=== PATIENT | male | born 1975 | race American Indian/Alaskan Native ===

== ENCOUNTER 2017-05-17 13:17 | Day surgery (SDC) | payer OTHER ==
[~2017-05-17 13:17] MED LIST: ANCEF/STERILE WATER 2 GM/20 ML IV NR
--- NOTE | 2017-05-17 14:11 | Anesthesia Consultation ---
Anesthesia Consult and Med Hx Date of service: 05/17/17 - Airway Anesthetic Teeth Evaluation: Good (braces on lower teeth) ROM Head & Neck: Inadequate (Pt. is a C3 Quadraplegic) Mental/Hyoid Distance: Adequate Mallampati Class: Class I (Pt. is trached.) - Pulmonary Exam CTA: Yes - Cardiac Exam Cardiac Exam: RRR - Pre-Operative Health Status ASA Pre-Surgery Classification: ASA3 Proposed Anesthetic Plan: General - Pulmonary Hx Smoking: No Hx Respiratory Symptoms: No Home Oxygen Therapy: No Hx Sleep Apnea: No (CAROLYN PRE SCREEN LOW RISK) - Cardiovascular System Hx Hypertension: No - Central Nervous System Hx Neuromuscular Disorder: Yes (C3 quadraplegic) Hx Back Pain: Yes (generalized body pain) - Gastrointestinal Hx Gastroesophageal Reflux Disease: No (Pt. has G-tube, but does not use. Eats regular food by mouth.) - Endocrine Hx Renal Disease: No (Frequent UTI's due to neurogenic bladder.) Hx Non-Insulin Dependent Diabetes: No - Hematic Hx Sickle Cell Disease: No - Other Systems Hx Cancer: No - Additional Comments Anesthesia Medical History Comments: Pt. has a tracheostomy.
--- NOTE | 2017-05-17 14:16 | Anesthesia Day of Surgery ---
Anesthesia Day of Surgery - Day of Surgery Patient Examined: Yes Patient H&P Reviewed: Yes Patient is NPO: Yes
[2017-05-17] MEDS ORDERED: NACL BACTERIOSTATIC INFILTRATI ONE (14:58)
[2017-05-17] MEDS ORDERED: PEPCID PO NR (15:00)
[2017-05-17] MEDS ORDERED: NACL 0.9% 1000 ML 1,000 ML IV SCH (15:00)
[2017-05-17] MEDS ORDERED: VERSED IV NR (15:00)
[2017-05-17] MEDS ORDERED: DILAUDID ONE (15:42)
[2017-05-17] MEDS ORDERED: WATER FOR IRRIG STERILE IR ONE (16:15)
[2017-05-17] MEDS ORDERED: ZOFRAN ONE (16:49)
--- NOTE | 2017-05-17 16:49 | Short Stay Summary ---
Short Stay Documentation Date of service: 05/17/17 - History H&P: obtained from office - Allergies and Medications Current Medications: Allergies No Known Allergies Allergy (Verified 05/11/17 16:33) Home Medications Medication Instructions Recorded Confirmed Last Taken Type Baclofen [Lioresal] 10 mg PO BID 05/11/17 05/11/17 05/17/17 07:00 History Midodrine [Proamatine] 5 mg PO TID 05/11/17 05/11/17 05/17/17 07:00 History Pregabalin [Lyrica] 150 mg PO BID 05/11/17 05/11/17 05/17/17 07:00 History QUEtiapine [SEROquel] 100 mg PO QHS 05/11/17 05/11/17 05/16/17 History Sertraline [Zoloft] 50 mg PO QDAY 05/11/17 05/11/17 05/16/17 History Active Medications Cefazolin Sodium (Ancef/Sterile Water 2 Gm/20 Ml) 2 gm IV PREOP NR Stop: 05/17/17 23:59 Famotidine (Pepcid) 20 mg PO PREOP NR Stop: 05/17/17 23:59 Last Admin: 05/17/17 15:05 Dose: 20 mg Sodium Chloride (Nacl 0.9% 1000 Ml) 1,000 mls @ 75 mls/hr IV DIRECT TALIA Last Admin: 05/17/17 15:10 Dose: 75 mls/hr Midazolam HCl (Versed) 2 mg IV PREOP NR Stop: 05/17/17 23:59 - Brief post op/procedure progress note Date of procedure: 05/17/17 Pre-op diagnosis: neurogenic bladder Post-op diagnosis: same Procedure: cysto, cystogram, spt placement Anesthesia: GETA Surgeon: JUAN JOSE RUIZ Estimated blood loss: minimal Pathology: none Condition: stable - Hospital course Hospital course: annro & radha on chart - Disposition Condition at discharge: Stable Disposition: DC-01 TO HOME OR SELFCARE Short Stay Discharge Plan Follow up with: DEQUAN NGUYEN MD [Primary Care Provider] - 7 Days
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
--- NOTE | 2017-05-17 18:41 | Post Anesthesia Evaluation ---
- Post Anesthesia Evaluation Patient Participated: Yes Airway Patent: Yes Stable Respiratory Function: Yes Nausea/Vomiting: No Temp > 96.8F: Yes Pain Manageable: Yes Adequeate Hydration: Yes Anesthesia Complications: No Block Receding Appropriately: Not Applicable Patient on Ventilator: No
[2017-05-17 18:58] VITALS: BP 146/68
--- NOTE | 2017-05-18 08:56 | Fluoroscopy Report ---
Static cystogram in OR: Urinary retention. The initial image demonstrates a PEG tube. A suprapubic catheter is present through which contrast was injected into the urinary bladder. The bladder demonstrates mild trabeculation of the bladder wall with a vertical contour of the bladder. No filling defect no extravasation noted. Impression: The bladder contour is consistent with outlet obstruction/neurogenic bladder.
== END 2017-05-17 13:18 | disposition home or self-care (01) ==
LOC: OR 13:17
PROVIDERS: ATTEND Urology
DX: N31.9 Neuromuscular dysfunction of bladder, unspecified (principal); G82.50 Quadriplegia, unspecified; N21.0 Calculus in bladder; R33.9 Retention of urine, unspecified
CPT/HCPCS: 51040; 51102; 51600; 74430; A4217; J0690; J1170; J2405; J7030; Q9967; J2250

== ENCOUNTER 2018-10-20 12:02 | Emergency (ER) | payer MEDICAID, MEDICARE, OTHER ==
[2018-10-20] MEDS ORDERED: NACL 0.9% 1000 ML 2,000 ML ONE (12:16)
[2018-10-20] MEDS ORDERED: NACL 0.9% 1000 ML 2,000 ML IV ONE (12:16)
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
[2018-10-20] MEDS ORDERED: ADRENALIN ONE (16:13)
== END 2018-10-20 14:17 ==
LOC: ED 12:02
DX: T21.39XA Burn of third degree of other site of trunk, initial encounter (principal); T31 Burns classified according to extent of body surface involved; I46.9 Cardiac arrest, cause unspecified; Z79.899 Other long term (current) drug therapy; X11.0XXA Contact with hot water in bath or tub, initial encounter; Y93.89 Activity, other specified; Y92.89 Other specified places as the place of occurrence of the external cause; Y99.8 Other external cause status
CPT/HCPCS: 36556; 82962; 92950; 99291; J0171; J7030